=== PATIENT | male | born 1955 | race Caucasian/White ===

== ENCOUNTER 2020-06-13 06:44 | Emergency (ER) | payer OTHER, SELFPAY ==
[~2020-06-13] VITALS: Ht 180.3 cm; Wt 63.5 kg
[~2020-06-13 06:44] MED LIST: ALBUTEROL SULFAT0.51 IH; ALENDRONATE SOD70 M3 PO; ASPIR 8181 MG PO; ATIVAN0.5 M1 PO; AUG500 PO; CIPRO500 MG PO; DILTIAZEM HCL240 MG PO; LAC PO; LIPI10 PO; NITROGLYCERIN0.4 MG SL; NITROSTAT0.4 MG SL; OMEPRAZOLE DR20 M1 PO; PROAIR HFA0.09 MG/A1 INH; PROTONIX20 MG PO; SINGULAIR10 MG PO; STROVITE ONE1 TAB; SYMBICORT1 AE2 IH; SYMBICORT1 AE2 INH; [UNRECOGNIZED DRUG - OTHER] PO
[2020-06-13 07:15] VITALS: Ht 180.3 cm; Wt 63.5 kg
[2020-06-13 08:06] LABS: microscopic required? NO
[2020-06-13 08:19] LABS: BASOPHIL % 0.3 % (0.2-1.5); PLATELET COUNT 189 x10^3mcL (152-348)
[2020-06-13 08:21] LABS: RED CELL DISTRIBUTION WIDTH 17.3 % (12.1-16.2)
[2020-06-13 08:39] LABS: CALCIUM 9.1 mg/dL (8.5-10.1); CARBON DIOXIDE 31.2 mmol/L (21-32); CREATININE SERUM 1.6 mg/dL (0.7-1.3); POTASSIUM SERUM 4.2 mmol/L (3.5-5.1)
[2020-06-13 08:41] LABS: C REACTIVE PROTEIN 1.3 mg/dL (<=0.9)
[2020-06-13 08:51] LABS: ALBUMIN 3.5 g/dL (3.4-5.0); BILIRUBIN TOTAL 0.5 mg/dL (0.20-1.00); TOTAL PROTEIN, SERUM 7.2 g/dL (6.4-8.2)
[2020-06-13 08:55] LABS: FREE T4 1.09 ng/dL (0.76-1.46)
[2020-06-13 10:14] LABS: UA SPECIFIC GRAVITY 1.015 (1.005-1.035); urine erythrocyte NEGATIVE (NEGATIVE)
[2020-06-13 13:07] VITALS: BP 115/51
== END 2020-06-13 14:06 | disposition home or self-care (01) ==
LOC: ED 06:44
PROVIDERS: Emergency Medicine
DX: J44.9 Chronic obstructive pulmonary disease, unspecified (principal); E86.0 Dehydration; Z20.828 Contact with and (suspected) exposure to other viral communicable diseases
CPT/HCPCS: 83880; 84439; 85378; J7030; Q9967; U0003